=== PATIENT | female | born 1980 | race Caucasian/White ===

== ENCOUNTER → 2017-08-12 | Outpatient (REF) ==
[~2017-08-12] MED LIST: ACETAMINOPHEN W1 TA6 PO; BACTRIM DS 8001 TAB PO; NORCO 325 MG-51 TAB PO; PRENATAL VITAMI1 TA5 PO; PRENATAL1 TA1 PO; RAPAFLO8 MG PO; SEPTRA 400 MG-1 TAB PO
[2017-08-12 09:21] LABS: THYROID STIMULATING HORMONE 2.98 uIU/mL (0.465-4.680)
== END ==
LOC: ZLAB.WCH 08:32
PROVIDERS: Family Medicine
DX: Z01.89 Encounter for other specified special examinations (principal)

== ENCOUNTER → 2019-08-04 | Outpatient (CLI) | payer BC | LOC: COL.RAD 14:00 | DX: M79.672 Pain in left foot (principal) | CPT/HCPCS: J3301; Q9967 ==